=== PATIENT | female | born 1950 | race Hispanic/Latino ===

== ENCOUNTER 2020-12-05 22:28 | Emergency (ER) | payer MEDICARE ==
[2020-12-05 22:36] VITALS: BP 154/85
[2020-12-06 00:43] VITALS: BP 148/83
[2020-12-06] MEDS ORDERED: ORPH-43 PO (01:23)
[2020-12-06] MEDS ORDERED: MELO7.5T12 PO (01:23)
[2020-12-06 01:24] VITALS: BP 143/82
== END 2020-12-06 01:46 | disposition home or self-care (01) ==
LOC: EDH 22:28
DX: S82.832A Other fracture of upper and lower end of left fibula, initial encounter for closed fracture (principal); I10 Essential (primary) hypertension; E11.9 Type 2 diabetes mellitus without complications; K21.9 Gastro-esophageal reflux disease without esophagitis; Z79.899 Other long term (current) drug therapy; W18.39XA Other fall on same level, initial encounter; Y93.89 Activity, other specified; Y92.89 Other specified places as the place of occurrence of the external cause; Y99.8 Other external cause status
CPT/HCPCS: 73610; 73630

== ENCOUNTER → 2022-08-03 | Outpatient (CLI) | payer MEDICARE ==
[~2022-08-03] MED LIST: MELO7.5T12 PO; ORPH-43 PO
== END | disposition home or self-care (01) ==
LOC: SHCH 12:58
PROVIDERS: ATTEND Internal Medicine Cardiovascular Disease
DX: I44.7 Left bundle-branch block, unspecified (principal); I10 Essential (primary) hypertension; E78.5 Hyperlipidemia, unspecified; E11.9 Type 2 diabetes mellitus without complications
CPT/HCPCS: 93306

== ENCOUNTER → 2022-08-24 | Outpatient (CLI) | payer MEDICARE ==
[~2022-08-24] MED LIST changes: -ORPH-43 PO; +ORPH100T4 PO
== END | disposition home or self-care (01) ==
LOC: SHCH 14:20
PROVIDERS: ATTEND Internal Medicine Cardiovascular Disease
DX: I87.2 Venous insufficiency (chronic) (peripheral) (principal)
CPT/HCPCS: 93970

== ENCOUNTER → 2022-10-26 | Outpatient (CLI) | payer MEDICARE | END | disposition home or self-care (01) | LOC: RAH 13:36 | PROVIDERS: ATTEND Emergency Medicine | DX: R22.9 Localized swelling, mass and lump, unspecified (principal); Z12.31 Encounter for screening mammogram for malignant neoplasm of breast | CPT/HCPCS: 76604; 77067 ==